=== PATIENT | male | born 1980 | race Hispanic/Latino ===

== ENCOUNTER → 2016-08-25 | Outpatient (CLI) | payer OTHER ==
[~2016-08-25] MED LIST: CONRAY-43 43% 50ML VIAL (Q9960) As Ordered ONE; LIDOCAINE 1% MDV 20ML VIAL As Ordered ONE; TRIAMCINOLONE ACETONIDE SUSP 40 MG/ML VIAL (J3301) As Ordered ONE
--- NOTE | 2016-08-25 14:59 | REP ---
Intra-articular Kenalog and lidocaine injection left hip, fluoroscopic guidance. History: Left hip pain. Procedure: The patient was interviewed and informed consent was obtained. The patient was placed supine on the fluoroscopy table. The left groin femoral pulse was palpated and the overlying skin was marked. After patient safety time-out was articulated and agreed to, the area was prepped and draped in the usual fashion. Utilizing fluoroscopic guidance, aseptic cautions and 1% lidocaine for local anesthetic, a 22 gauge 3-1/2 inch needle was advanced into the left hip articulation without technical difficulty. Intra-articular needle position was confirmed by the injection of 1 ml of Conray 43. This is followed by the injection of a solution of 9 ml of 1% lidocaine and 1 ml, 40 mg, of Kenalog. The patient tolerated the injection procedure well. Impression: Intra-articular Kenalog and lidocaine injection left hip fluoroscopic guidance. Fluoroscopy time for this procedure was 39 seconds. Signed by Rd Hernandez MD 08/25/2016 05:35 P
== END ==
LOC: M RADPRO 10:12
PROVIDERS: ATTEND Orthopaedic Surgery
DX: M25.552 Pain in left hip (principal)
CPT/HCPCS: 20610; 77002; J3301; Q9960

== ENCOUNTER → 2017-05-17 | Outpatient (CLI) | payer OTHER ==
[~2017-05-17] MED LIST changes: -LIDOCAINE 1% MDV 20ML VIAL As Ordered ONE; +PROHANCE 279.3MG/ML 5ML VIAL (A9576) As Ordered ONE; -TRIAMCINOLONE ACETONIDE SUSP 40 MG/ML VIAL (J3301) As Ordered ONE
--- NOTE | 2017-05-17 11:22 | REP ---
MR ARTHROGRAM LEFT HIP: HISTORY: Left hip pain . COMPARISON STUDIES: No comparison images. TECHNIQUE: Precontrast imaging includes coronal T1 and T2-weighted scans of both hips. Postcontrast small field of view high resolution axial, coronal and sagittal images are acquired in T1 and T2-weighted scans with fat saturation. MR ARTHROGRAPHIC FINDINGS: There is a small zone of juxta-articular marrow edema in the superior acetabulum on each side, left a little larger than right. On the left, this measures 12 mm. No definite cyst formation is seen. Pre-injection MR imaging shows the cortical and medullary bone signal intensity to be otherwise normal in the proximal femurs bilaterally. The visualized bony pelvic ring is intact. There is no evidence of significant hip joint effusion on either side. No juxtaarticular bursal fluid collection or other fluid collection is seen. Post injection MR imaging demonstrates good filling and enhancement of the left hip articulation. Ligamentum teres is intact. No labral cartilage tear is seen. There is no evidence of loose body. IMPRESSION: Juxtaarticular marrow edema in the superior aspect of the acetabulum bilaterally, left a little larger than right. This may be associated with early arthropathy. Otherwise negative MR arthrography left hip. Signed by Rd Hernandez MD 05/17/2017 11:42 A
--- NOTE | 2017-05-17 14:18 | REP ---
LEFT HIP ARTHROGRAM: The procedure was performed by DANIEL Samuel under the direct supervision of Dr. Hernandez. The procedure along with its risks, benefits, and complications were discussed with the patient prior to the examination. Informed consent was obtained both verbally and written. The left femoral neck was localized using fluoroscopic guidance. The skin was marked, prepped and draped in the usual sterile fashion. A procedural time out was performed to ensure that the correct patient, site and procedure was being performed. Local infiltrative anesthesia was achieved using 1% lidocaine. Under fluoroscopic observation, a 22-gauge spinal needle was inserted and advanced to the femoral neck. 0.5 mL of Conray 60 were injected to verify placement. 11 mL of a solution containing 19 mL of sterile saline and 0.5 mL of gadolinium was injected into the joint space. The needle was then removed. The patient tolerated the procedure well and had no immediate complications. Fluoroscopy time is 0.1 minutes were utilized for this procedure. Reviewed by DANIEL Samuel 05/17/2017 04:31 PEdited and Signed by Rd Hernandez MD 05/18/2017 08:08 A
== END ==
LOC: M RADPRO 08:06
PROVIDERS: ATTEND Physician Assistant Medical
DX: R60.0 Localized edema (principal)
CPT/HCPCS: 27095; 73723; 77002; A9576; Q9960